=== PATIENT | female | born 1965 | race Caucasian/White ===

== ENCOUNTER 2017-10-19 13:33 | Emergency (ER) | payer MEDICAID ==
[~2017-10-19] VITALS: Ht 165.1 cm; Wt 68.0 kg
[2017-10-19 14:32] LABS: APPEARANCE,URINE Slightly Cloudy (CLEAR); BILIRUBIN,URINE Negative (NEGATIVE); BLOOD, URINE Large Ery/uL (NEGATIVE); COLOR,URINE Light yellow (YELLOW); KETONES,URINE Negative (NEGATIVE); LEUKOCYTE ESTERASE ,URINE Moderate (NEGATIVE); NITRITE, URINE Negative (NEGATIVE); PROTEIN,URINE 30 mg/dl (NEGATIVE); UGLUCOSE Negative (NEGATIVE); UROBILINOGEN,URINE 0.2 EU/dL (0.2)
[2017-10-19 14:40] VITALS: BP 112/75
[2017-10-19 14:48] LABS: BACTERIA,URINE Few /HPF (None Seen); SQUAMOUS EPITHELIAL CELL,UR Few /HPF (None Seen); WBC,URINE 21-50 /HPF (0-3)
--- NOTE | 2017-10-19 14:54 | NUR ---
Patient discharged to home in stable condition. Written and verbal after care instructions given. Patient verbalizes understanding of instruction.
== END 2017-10-19 14:56 | disposition home or self-care (01) ==
LOC: ER 13:34
DX: N30.01 Acute cystitis with hematuria (principal); Z90.710 Acquired absence of both cervix and uterus; Z98.890 Other specified postprocedural states
CPT/HCPCS: 81001; 84703; 87086; 99284; A4606; Z7610; 81000-TC

== ENCOUNTER 2023-03-17 00:38 | Inpatient (IN) | payer BC ==
[~2023-03-17] VITALS: Ht 165.1 cm; Wt 68.5 kg
--- NOTE | 2023-03-17 01:03 | NUR ---
bibself c/o abd pain and nausea vomiting, after eating pizza at 4pm, took unknown marijuana pill from friend to help pain, 04/27 ps. Pt A/Ox4. Tolerating R/A well with no resp distress. Safety measures in place.
--- NOTE | 2023-03-17 01:08 | NUR ---
DR ALYCE MANNING AT PT'S BEDSIDE FOR EVAL
--- NOTE | 2023-03-17 01:15 | NUR ---
URINE COLLECTED AND SENT TO LAB
[2023-03-17] MEDS ORDERED: ONDANSETRON HCL/PF 4 MG/2 ML VIAL ONE (01:16)
--- NOTE | 2023-03-17 01:24 | NUR ---
RAC #18G S/L BLOOD COLLECTED AND SENT TO LAB
[2023-03-17] MEDS ORDERED: ONDANSETRON HCL/PF 4 MG/2 ML VIAL IVP ONE (01:30)
[2023-03-17] MEDS ORDERED: KETOROLAC TROMETHAMINE INJ 30 MG/ML VIAL IV ONE (01:30)
[2023-03-17] MEDS ORDERED: PANTOPRAZOLE 40 MG VIAL IV ONE (01:30)
[2023-03-17] MEDS ORDERED: IV NS 0.9% 1,000 ML BAG IV ONE (01:30)
[2023-03-17] MEDS ORDERED: KETOROLAC TROMETHAMINE INJ 30 MG/ML VIAL ONE (01:35)
[2023-03-17] MEDS ORDERED: PANTOPRAZOLE 40 MG VIAL ONE (01:35)
[2023-03-17 01:36] LABS: BASOPHILS # (AUTO) 0.1 K/uL (0.0-0.2); BASOPHILS % (AUTO) 0.3 % (0.0-2.0); EOSINOPHILS % (AUTO) 0.4 % (0.0-6.0); HEMATOCRIT 39 % (33-45); HEMOGLOBIN 12.7 g/dL (11.5-14.8); LYMPHOCYTES # (AUTO) 1.2 K/uL (0.8-4.8); LYMPHOCYTES % (AUTO) 6.9 % (20.0-44.0); MEAN CORPUSCULAR HGB CONC 32 g/dl (31.0-36.0); MEAN CORPUSCULAR VOLUME 93 fL (82-100); MONOCYTES # (AUTO) 0.9 K/uL (0.1-1.30); MONOCYTES % (AUTO) 5.1 % (2.0-12.0); NEUTROPHILS # (AUTO) 15.3 K/uL (1.8-8.9); NEUTROPHILS % (AUTO) 87.3 % (43.0-81.0); PLATELET COUNT (AUTO) 221 K/uL (150-450); RED BLOOD CELL COUNT(AUTO) 4.22 MIL/uL (4.0-5.2); WHITE BLOOD COUNT (AUTO) 17.5 K/uL (4.3-11.0)
[2023-03-17 01:47] LABS: BILIRUBIN,URINE NEGATIVE (NEGATIVE); COLOR,URINE YELLOW (YELLOW); LEUKOCYTE ESTERASE ,URINE 1+ (NEGATIVE); NITRITE, URINE NEGATIVE (NEGATIVE); PH,URINE 5.5 (5.0-8.0); PROTEIN,URINE NEGATIVE (NEGATIVE); UGLUCOSE NEGATIVE (NEGATIVE); UROBILINOGEN,URINE 0.2 EU/dL (0.2)
[2023-03-17 01:51] LABS: BACTERIA,URINE Rare /HPF (None Seen); RBC,URINE 0-2 /HPF (0-2); SQUAMOUS EPITHELIAL CELL,UR Few /HPF (None Seen); WBC,URINE 0-2 /HPF (0-3)
[2023-03-17 01:53] LABS: ALBUMIN 4.1 g/dL (3.4-5.0); BILIRUBIN,DIRECT 0.1 mg/dL (0.0-0.2); BILIRUBIN,TOTAL 0.6 mg/dL (0.2-1.0)
--- NOTE | 2023-03-17 02:09 | NUR ---
COVID SWAB COLLETED
[2023-03-17] MEDS ORDERED: PIPERACILLIN /TAZOBACTAM 3.375 G VIAL IV ONE (02:10)
[2023-03-17] MEDS ORDERED: ONDANSETRON HCL/PF 4 MG/2 ML VIAL IVP PRN (02:30)
[2023-03-17] MEDS ORDERED: MORPHINE SULFATE INJ 2 MG/ML DISP.SYRIN IV PRN (02:30)
[2023-03-17] MEDS ORDERED: MAG HYDROX/AL HYDROX/SIMETH 30 ML UDC PO PRN (02:30)
[2023-03-17] MEDS ORDERED: PIPERACILLIN /TAZOBACTAM 3.375 G in IV D5W 50 ML IV ONE (02:30)
[2023-03-17] MEDS ORDERED: ACETAMINOPHEN 325 MG TABLET PO PRN (02:30)
[2023-03-17] MEDS ORDERED: MAGNESIUM HYDROXIDE 30 ML UDC PO PRN (02:30)
[2023-03-17] MEDS ORDERED: Z GUARD REMEDY 4 OZ OINT TP PRN (02:30)
[2023-03-17] MEDS ORDERED: ZOLPIDEM TARTRATE 5 MG TABLET PO PRN (02:30)
[2023-03-17] MEDS ORDERED: IV NS 0.9% 1,000 ML IV PRN (02:30)
--- NOTE | 2023-03-17 02:32 | NUR ---
US TECH AT PT'S BEDSIDE
--- NOTE | 2023-03-17 02:54 | NUR ---
REPORT GIVEN TO LIN VARGAS RN FOR PALOMA
--- NOTE | 2023-03-17 04:20 | NUR ---
MS RN OPENING NOTE PT TRANSPORTED VIA GURNEY FROM ER AT THIS TIME. PT ADMITTED FROM ER TO [facility] UNDER FRAMEWORK DEVELOPER [facility] FOR ADMITTING DX ACUTE PANCREATITIS. A/O X4 AND ABLE TO MAKE NEEDS KNOWN. PT STABLE ON ROOM AIR, SATURATING 98%. NO SOB OR S/S OF RESPIRATORY DISTRESS. BREATHING EVEN AND UNLABORED. IV ACCESS RAC 18G, INTACT AND PATENT. NPO PER MD ORDER. SKIN INTACT. AMBULATORY WITH STEADY GAIT. ORIENTED TO UNIT, STAFF, AND ROOM. PT BELONGINGS ACCOUNTED FOR AND BELONGINGS LIST SIGNED. SAFETY PRECAUTIONS IN PLACE. BED IN LOWEST LOCKED POSITION, HOB ELEVATED, SIDE RAILS UP X2, AND CALL LIGHT AND TABLE WITHIN REACH. ALL NEEDS MET AT THIS TIME. Addendum: 03/17/23 at 0543 by KAYLEEN REHMAN RN ADMISSION NOTE
--- NOTE | 2023-03-17 04:33 | NUR ---
PT TRANSFERRED TO [facility] VIA HOSPITAL PROTOCOL. VSS.
[2023-03-17 04:44] VITALS: BP 119/71
--- NOTE | 2023-03-17 06:10 | NUR ---
RN NOTE INFORMED FISH CLEANER MACHINE TENDER KEH OF PATIENTS WISH TO BE DNR/DNI. NEW ORDER NOTED AND CARRIED OUT. CHARGE NURSE CASSIUS SHIELDS.
--- NOTE | 2023-03-17 07:15 | NUR ---
MEDICAL INFORMATION SPECIALIST OPENING NOTES Received pt awake in bed AOx4. No complaints of pain or discomfort at this time. Pt is currently on RA and tolerating it well. IV access on RAC 18G running IVF NS @ 100cc/hr as ordered. HOB elevated to pts comfort. Siderails up at all times. Call light within reach. Will continue to monitor. Addendum: 03/17/23 at 0822 by BHARAT DOWNS LVN please disregard
[2023-03-17] MEDS: PIPERACILLIN /TAZOBACTAM 3.375 G in IV D5W 50 ML IV SCH ×3 (07:36→17:36)
[2023-03-17 08:00] VITALS: BP 111/69
[2023-03-17] MEDS: PANTOPRAZOLE 40 MG VIAL IV SCH (08:28)
[2023-03-17] MEDS ORDERED: DICL75TA5 PO (09:32)
[2023-03-17] MEDS ORDERED: IV LR 1000 ML 1,000 ML IV PRN (10:00)
[2023-03-17] MEDS: IV LR 1000 ML 1,000 ML IV SCH ×3 (15:07→20:48)
[2023-03-17 16:00] VITALS: BP 98/61
--- NOTE | 2023-03-17 18:35 | NUR ---
HOBBER CLOSING NOTES All due medsand tx given as ordered. Pt tolerated everything well. All needs attended to. Call light within reach. Will endorse to oncoming nurse.
[2023-03-17] MEDS ORDERED: GADOTERATE MEGLUMINE 10 MMOL/20 ML VIAL IV ONE (18:55)
--- NOTE | 2023-03-17 19:30 | NUR ---
MS RN OPENING NOTE PT AWAKE IN BED. A/O X4 AND ABLE TO MAKE NEEDS KNOWN. PT STABLE ON ROOM AIR, SATURATING 98%. NO SOB OR S/S OF RESPIRATORY DISTRESS. BREATHING EVEN AND UNLABORED. IV ACCESS RAC 18G, INTACT AND PATENT, RUNNING LR @ 300 ML/HR. NPO PER MD ORDER. SAFETY PRECAUTIONS IN PLACE. BED IN LOWEST LOCKED POSITION, HOB ELEVATED, SIDE RAILS UP X2, AND CALL LIGHT AND TABLE WITHIN REACH. ALL NEEDS MET AT THIS TIME.
--- NOTE | 2023-03-17 20:20 | NUR ---
RN NOTE REPORT GIVEN TO PJ GARG. GOING TO ROOM 322-1.
--- NOTE | 2023-03-17 20:48 | NUR ---
RN NOTE PT TRANSFERRED VIA BED TO ROOM 322-1 AT THIS TIME.
--- NOTE | 2023-03-17 20:50 | NUR ---
RN Notes Patient transferred via bed. AOx4, able to make needs known. On RA and tolerating well. No SOB noted. No s/sx of respiratory distress noted. IV access in RAC #18G running LR @ 300 mL/hr. Safety precautions in place: bed in lowest, locked position, siderails upX2, and brakes on. Table and call light within reach. All needs met at this time.
[2023-03-17 21:03] VITALS: BP 107/68
[2023-03-18] MEDS: PIPERACILLIN /TAZOBACTAM 3.375 G in IV D5W 50 ML IV SCH ×3 (00:01→13:10)
[2023-03-18] MEDS: IV LR 1000 ML 1,000 ML IV SCH ×2 (00:34→04:50)
[2023-03-18 05:59] LABS: BASOPHILS % (AUTO) 0.3 % (0.0-2.0); HEMATOCRIT 34 % (33-45); HEMOGLOBIN 11.2 g/dL (11.5-14.8); LYMPHOCYTES # (AUTO) 1.3 K/uL (0.8-4.8); LYMPHOCYTES % (AUTO) 15.7 % (20.0-44.0); MEAN CORPUSCULAR HGB CONC 33 g/dl (31.0-36.0); MEAN CORPUSCULAR VOLUME 93 fL (82-100); MONOCYTES # (AUTO) 0.5 K/uL (0.1-1.30); MONOCYTES % (AUTO) 6.4 % (2.0-12.0); NEUTROPHILS # (AUTO) 6.3 K/uL (1.8-8.9); NEUTROPHILS % (AUTO) 76.6 % (43.0-81.0); PLATELET COUNT (AUTO) 170 K/uL (150-450); RED BLOOD CELL COUNT(AUTO) 3.61 MIL/uL (4.0-5.2); WHITE BLOOD COUNT (AUTO) 8.2 K/uL (4.3-11.0)
[2023-03-18 06:26] LABS: CALCIUM, SERUM 8.4 mg/dL (8.5-10.1); CREATININE 1.1 mg/dL (0.6-1.3); PHOSPHORUS 2.7 mg/dL (2.5-4.9); POTASSIUM 3.9 mmol/L (3.5-5.1)
--- NOTE | 2023-03-18 06:35 | NUR ---
RN Closing Notes Pt in bed, resting with eyes closed. AOx4, able to make needs known. On RA and tolerating well. No SOB noted. No s/sx of respiratory distress noted. IV access in RAC #18G running LR @ 300 mL/hr. All orders carried out. All needs met. Pt kept clean and dry. Safety precautions in place: bed in lowest, locked position, siderails upX2, and brakes on. Table and call light within reach. Will endorse to oncoming shift for PALOMA.
--- NOTE | 2023-03-18 07:30 | NUR ---
MS RN OPENING NOTE RECEIVED PT AWAKE IN BED. A/O X4 AND ABLE TO MAKE NEEDS KNOWN. PT STABLE ON ROOM AIR, SATURATING 98%. NO SOB OR S/S OF RESPIRATORY DISTRESS. BREATHING EVEN AND UNLABORED. DENIES PAIN. IV ACCESS RAC 18G, INTACT AND PATENT, RUNNING LR @ 300 ML/HR. NPO PER MD ORDER. AWAITING HIDA SCAN PROCEDURE. SAFETY PRECAUTIONS IN PLACE. BED IN LOWEST LOCKED POSITION, HOB ELEVATED, SIDE RAILS UP X2, AND CALL LIGHT AND TABLE WITHIN REACH. WILL ADMINISTER ALL SCHEDULED MEDS ORDERED AND CONTINUE TO MONITOR.
[2023-03-18 08:18] VITALS: BP 109/66
[2023-03-18] MEDS: PANTOPRAZOLE 40 MG VIAL IV SCH (08:18)
--- NOTE | 2023-03-18 10:00 | NUR ---
RN NOTES PT LEFT ROOM VIA WHEELCHAIR FOR HIDA SCAN PROCEDURE.
--- NOTE | 2023-03-18 16:20 | NUR ---
HIM ANALYST NOTES PT DISCHARGED IN STABLE CONDITION AT 1620. PT ALERT ORIENTED X4, DENIES PAIN, NO DISTRESS NOTED. IV ACCESS REMOVED. ARM BAND REMOVED. SKIN ASSESSMENT DONE, INTACT . ALL BELONGINGS CHECKED AND RECONCILED. HEALTH TEACHING AND DISCHARGE INSTRUCTIONS GIVEN AND VERBALIZED UNDERSTANDING. FOLLOW UP WITH PCP AND RETURN TO ER INCASE OF EMERGENCY. ASSISTED PT TO THE LOBBY, LEFT AMBULATORY. CHARGE NURSE AWARE.
== END 2023-03-18 16:25 | disposition home or self-care (01) | DRG 440 ==
LOC: EDUNIT# 00:38 → ER 00:44 → MEDSG1 02:44 → MED 20:36
PROVIDERS: ADMIT Internal Medicine; ATTEND Internal Medicine
DX: K85.90 Acute pancreatitis without necrosis or infection, unspecified (principal); Z87.440 Personal history of urinary (tract) infections; Z90.711 Acquired absence of uterus with remaining cervical stump
CPT/HCPCS: 36415; 74183; 76700-TC; 78226; 80048-TC; 80061-TC; 80076-TC; 81001; 83690-TC; 83735-TC; 84100-TC; 85025-TC; 86140-TC; 87081-TC; A4223; A9537; A9575; C9113; G0378; J1885; J2405; J2543; J7030; J7060; J7120